=== PATIENT | male | born 1975 | race Caucasian/White ===

== ENCOUNTER 2017-05-07 20:29 | Emergency (ER) | payer BC ==
[~2017-05-07] VITALS: Ht 182.9 cm; Wt 99.7 kg
[~2017-05-07 20:29] MED LIST: FLEXERIL10 MG PO; FLEXERIL5 MG PO; FLOMAX0.4 MG PO; INDOCIN25 MG PO; MEDROL DOSEPAK4 MG PO; MOBIC7.5 MG PO; MOTRIN800 MG PO; NAPROSYN500 MG PO; NO HOME MEDS; NORCO 5/3251 TABLET PO; NORCO 7.5/321 TABLET PO; PERCOCET 5/31 TABLET PO; PREDNISONE10 M1 PO; TRAMADOL HCL50 MG PO; ULTRAM50 MG PO; VALIUM5 MG PO
[2017-05-07] MEDS ORDERED: LIDODERM 5% P1 PATCH TD (23:30)
[2017-05-07] MEDS ORDERED: PERCOCET 5/31 TABLET PO (23:30)
[2017-05-07] MEDS ORDERED: MEDROL DOSEPAK4 MG PO (23:30)
[2017-05-08 01:00] VITALS: BP 0/0
== END 2017-05-08 01:00 | disposition home or self-care (01) ==
LOC: EME 20:29
DX: G89.29 Other chronic pain (principal); M54.42 Lumbago with sciatica, left side; F17.200 Nicotine dependence, unspecified, uncomplicated
CPT/HCPCS: 72100; 99281; 99283; J2270; J7512

== ENCOUNTER 2017-06-28 05:45 | Emergency (ER) | payer BC ==
[~2017-06-28] VITALS: Ht 182.9 cm; Wt 97.5 kg
[~2017-06-28 05:45] MED LIST changes: +LIDODERM 5% P1 PATCH TD
[2017-06-28 06:09] LABS: HEMATOCRIT 41.9 % (38.0-50.0); MCH 29.4 PG (29.0-34.0); MCHC 33.7 G/DL (30.0-36.0); MCV 87.5 FL (86-99); MEAN PLAT.VOLUME 9.9 uM^3 (9.0-12.4); PLATELET COUNT 156 K/uL (156-360); RBC DIS.WIDTH-CV 12.5 % (11.8-14.6); RBC DIS.WIDTH-SD 40.1 % (39-53); RED BLOOD COUNT 4.79 M/uL (4.00-5.50); WHITE BLOOD COUNT 5.4 K/uL (4.1-10.2)
[2017-06-28 06:28] LABS: CHLORIDE 111 mEq/L (99-109); POTASSIUM 4.2 mEq/L (3.7-5.4); SODIUM 141 mEq/L (136-147)
[2017-06-28 06:30] LABS: GLUCOSE 99 mg/dL (70-99)
[2017-06-28 06:31] LABS: ANION GAP 6 MEQ/L (2-14)
[2017-06-28 06:32] LABS: TOTAL BILIRUBIN 0.7 mg/dL (0.0-1.0)
[2017-06-28 06:34] LABS: ALKALINE PHOSPHATASE 47 IU/L (3-129); GFR ESTIMATE (CALCULATED) > 59 mL/min/
[2017-06-28 06:35] LABS: UREA NITROGEN (BUN) 15 mg/dL (9-23)
[2017-06-28 06:37] LABS: LIPASE 17 U/L (1.0-51.0)
[2017-06-28 07:16] LABS: ADD MIUA? YES; BILIRUBIN NEGATIVE; BLOOD NEGATIVE; COLOR YELLOW ((YELLOW)); GLUCOSE (STRIP) NEGATIVE; KETONES NEGATIVE; LEUKOCYTES MODERATE; NITRITE NEGATIVE; PROTEIN (STRIP) NEGATIVE; SPECIFIC GRAVITY 1.023 (1.000-1.030); UROBILINOGEN 0.2 MG/DL (0.2-1.0)
[2017-06-28 07:25] LABS: AMPHETAMINE NEGATIVE (500 ng/mL); BARBITURATES NEGATIVE (200 ng/mL); BENZODIAZEPINES NEGATIVE (150 ng/mL); COCAINE NEGATIVE (150 ng/mL); INTERNAL CONTROLS VALID? YES; METHADONE NEGATIVE (200 ng/mL); METHAMPHETAMINE NEGATIVE (500 ng/mL); OPIATES (MORPHINE) NEGATIVE (100 ng/mL); OXYCODONE NEGATIVE (100 ng/mL); PHENCYCLIDINE NEGATIVE (25 ng/mL); PROPOXYPHENE NEGATIVE (300 ng/mL); THC CANNABINOIDS PRESUMPTIVE POSITIVE (50 ng/mL); TRICYCLIC ANTIDEPRESSANTS NEGATIVE (300 ng/mL)
[2017-06-28 07:26] LABS: ADD MEDTOX COMMENT Y
[2017-06-28 07:46] LABS: BACTERIA NONE SEEN /HPF; EPITHELIAL CELLS NONE SEEN /HPF; MUCUS 3+ /LPF; RED BLOOD CELLS 0-5 /HPF (0-5); UCUL ADDED? YES; WHITE BLOOD CELLS TNTC /HPF (0-5)
[2017-06-28] MEDS ORDERED: BACTRIM,SEPT1 TABLET PO (08:26)
[2017-06-28] MEDS ORDERED: FLEXERIL10 MG PO (08:27)
[2017-06-28] MEDS ORDERED: ULTRAM50 MG PO (08:27)
[2017-06-28 08:44] VITALS: BP 111/68
== END 2017-06-28 08:45 | disposition home or self-care (01) ==
LOC: EME 05:45
PROVIDERS: Emergency Medicine
DX: N39.0 Urinary tract infection, site not specified (principal); M54.5 Low back pain; Z87.442 Personal history of urinary calculi; F17.200 Nicotine dependence, unspecified, uncomplicated
CPT/HCPCS: 74176; 80053; 81003; 83690; 84999; 85027; 87086; 99281; 99285; J1630; J1885; J7030

== ENCOUNTER 2017-10-28 14:01 | Emergency (ER) | payer OTHER, BC ==
[~2017-10-28] VITALS: Ht 182.9 cm; Wt 97.3 kg
[~2017-10-28 14:01] MED LIST changes: +BACTRIM,SEPT1 TABLET PO
[2017-10-28] MEDS ORDERED: FLEXERIL5 MG PO (15:33)
[2017-10-28] MEDS ORDERED: NORCO 5/3251 TABLET PO (15:33)
[2017-10-28] MEDS ORDERED: PREDNISONE50 MG PO (15:33)
[2017-10-28 15:52] VITALS: BP 146/96
== END 2017-10-28 16:02 | disposition home or self-care (01) ==
LOC: EME 14:01
DX: M54.9 Dorsalgia, unspecified (principal); M79.605 Pain in left leg; M79.604 Pain in right leg; R20.0 Anesthesia of skin; V49.50XA Passenger injured in collision with unspecified motor vehicles in traffic accident, initial encounter; Y92.410 Unspecified street and highway as the place of occurrence of the external cause; G89.29 Other chronic pain; Z87.442 Personal history of urinary calculi; F17.200 Nicotine dependence, unspecified, uncomplicated
CPT/HCPCS: 72100; 99281; 99283